=== PATIENT | female | born 2000 | race Caucasian/White ===

== ENCOUNTER 2023-05-08 22:32 | Emergency (ER) | payer SELFPAY ==
[2023-05-08] MEDS: Ibuprofen 600 MG Tab PO ONE (22:54)
== END 2023-05-08 23:21 | disposition home or self-care (01) ==
LOC: DL.ED 22:32
DX: S63.501A Unspecified sprain of right wrist, initial encounter (principal); W19.XXXA Unspecified fall, initial encounter; Y93.22 Activity, ice hockey
CPT/HCPCS: 73110-RT; 99282; 99283; A9270-GY